=== PATIENT | female | born 1955 | race Two or more races ===

== ENCOUNTER 2017-12-07 15:29 | Outpatient (CLI) | payer OTHER ==
[~2017-12-07 15:29] MED LIST: ALEVE220 M1 PO; CEFADROXIL500 MG PO; PERCOCET 5/3251 TAB PO
== END 2017-12-07 15:31 | disposition home or self-care (01) ==
LOC: MAMO-SONO 15:29
DX: Z12.31 Encounter for screening mammogram for malignant neoplasm of breast (principal); N95.1 Menopausal and female climacteric states

== ENCOUNTER 2018-03-01 12:35 | Outpatient (CLI) | payer OTHER | END 2018-03-01 12:40 | disposition home or self-care (01) | LOC: RAD 501 12:35 | DX: M65.4 Radial styloid tenosynovitis [de Quervain] (principal) ==

== ENCOUNTER 2018-10-25 13:33 | Outpatient (CLI) | payer OTHER | END 2018-10-25 13:34 | disposition home or self-care (01) | LOC: SONOGRAMA 13:33 → MAMO-SONO 13:45 | DX: M25.562 Pain in left knee (principal); M65.88 Other synovitis and tenosynovitis, other site; M22.40 Chondromalacia patellae, unspecified knee | CPT/HCPCS: 73718 ==

== ENCOUNTER 2018-10-27 11:57 | Outpatient (CLI) | payer OTHER | END 2018-10-27 14:39 | disposition home or self-care (01) | LOC: RAD 11:57 | DX: M76.50 Patellar tendinitis, unspecified knee (principal); M23.205 Derangement of unspecified medial meniscus due to old tear or injury, unspecified knee ==

== ENCOUNTER → 2019-03-16 | Outpatient (CLI) | payer OTHER | END | disposition home or self-care (01) | LOC: RAD 16:21 | DX: G57.61 Lesion of plantar nerve, right lower limb (principal) ==

== ENCOUNTER 2020-04-14 12:13 | Outpatient (CLI) | payer OTHER | END 2020-04-14 13:42 | disposition home or self-care (01) | LOC: RAD 12:13 | PROVIDERS: ATTEND Obstetrics & Gynecology | DX: R05 Cough (principal); R07.89 Other chest pain; Z12.31 Encounter for screening mammogram for malignant neoplasm of breast; N60.11 Diffuse cystic mastopathy of right breast ==

== ENCOUNTER → 2020-04-14 15:18 | Outpatient (CLI) | payer OTHER | END | disposition home or self-care (01) | LOC: LAB 08:56 | PROVIDERS: ATTEND Obstetrics & Gynecology | DX: N91.1 Secondary amenorrhea (principal) ==

== ENCOUNTER 2020-04-28 12:40 | Outpatient (CLI) | payer OTHER | END 2020-04-28 12:45 | disposition home or self-care (01) | LOC: NUCLEAR 12:40 | PROVIDERS: ATTEND Obstetrics & Gynecology | DX: M85.80 Other specified disorders of bone density and structure, unspecified site (principal); M81.0 Age-related osteoporosis without current pathological fracture ==

== ENCOUNTER → 2020-08-01 | Outpatient (CLI) | payer OTHER | END | disposition home or self-care (01) | LOC: PPH VACUNA 02:12 | PROVIDERS: ATTEND Emergency Medicine Pediatric Emergency Medicine | DX: Z23 Encounter for immunization (principal) ==

== ENCOUNTER 2021-04-23 08:00 | Outpatient (CLI) | payer OTHER | END 2021-04-23 08:30 | disposition home or self-care (01) | LOC: PPH VACUNA 08:00 | PROVIDERS: ATTEND Emergency Medicine Pediatric Emergency Medicine | DX: Z23 Encounter for immunization (principal) ==

== ENCOUNTER 2021-07-17 11:52 | Outpatient (CLI) | payer OTHER | END 2021-07-17 16:36 | disposition home or self-care (01) | LOC: LAB 11:52 | PROVIDERS: ATTEND Obstetrics & Gynecology | DX: Z20.822 Contact with and (suspected) exposure to COVID-19 (principal) ==

== ENCOUNTER 2021-07-20 09:08 | Outpatient (CLI) | payer OTHER | END 2021-07-20 09:37 | disposition home or self-care (01) | LOC: LAB 09:08 | PROVIDERS: ATTEND Obstetrics & Gynecology | DX: Z20.822 Contact with and (suspected) exposure to COVID-19 (principal) ==

== ENCOUNTER 2021-10-29 08:00 | Outpatient (CLI) | payer OTHER | END 2021-10-29 08:30 | disposition home or self-care (01) | LOC: PPH VACUNA 08:00 | PROVIDERS: ATTEND Emergency Medicine Pediatric Emergency Medicine | DX: Z23 Encounter for immunization (principal) ==

== ENCOUNTER 2021-11-24 08:04 | Outpatient (CLI) | payer OTHER | END 2021-11-24 08:06 | disposition home or self-care (01) | LOC: MAMO-SONO 08:04 | PROVIDERS: ATTEND Obstetrics & Gynecology | DX: N60.11 Diffuse cystic mastopathy of right breast (principal) ==

== ENCOUNTER 2021-12-04 11:19 | Outpatient (CLI) | payer OTHER | END 2021-12-04 11:20 | disposition home or self-care (01) | LOC: NUCLEAR 11:19 | PROVIDERS: ATTEND Obstetrics & Gynecology | DX: M85.80 Other specified disorders of bone density and structure, unspecified site (principal); M81.0 Age-related osteoporosis without current pathological fracture ==

== ENCOUNTER → 2023-01-20 | Outpatient (CLI) | payer OTHER | END | disposition home or self-care (01) | LOC: TOM 08:19 | PROVIDERS: ATTEND Internal Medicine | DX: I11.9 Hypertensive heart disease without heart failure (principal); I71.019 Dissection of thoracic aorta, unspecified; E78.2 Mixed hyperlipidemia; N60.11 Diffuse cystic mastopathy of right breast; Z12.31 Encounter for screening mammogram for malignant neoplasm of breast | CPT/HCPCS: 71275; 76641; 76700; 77067; Q9965 ==

== ENCOUNTER → 2023-10-03 | Outpatient (CLI) | payer OTHER | END | disposition home or self-care (01) | LOC: TOM 14:25 | PROVIDERS: ATTEND Otolaryngology | DX: J32.0 Chronic maxillary sinusitis (principal) ==

== ENCOUNTER 2024-02-23 09:51 | Outpatient (CLI) | payer OTHER | END 2024-02-23 09:58 | disposition home or self-care (01) | LOC: MAMO-SONO 09:51 | PROVIDERS: ATTEND Obstetrics & Gynecology | DX: N60.11 Diffuse cystic mastopathy of right breast (principal); Z12.31 Encounter for screening mammogram for malignant neoplasm of breast ==

== ENCOUNTER 2024-03-02 13:54 | Outpatient (CLI) | payer OTHER | END 2024-03-02 13:57 | disposition home or self-care (01) | LOC: NUCLEAR 13:54 | PROVIDERS: ATTEND Pediatrics | DX: M85.80 Other specified disorders of bone density and structure, unspecified site (principal); M81.0 Age-related osteoporosis without current pathological fracture ==

== ENCOUNTER 2024-03-02 15:05 | Outpatient (CLI) | payer OTHER | END 2024-03-02 15:16 | disposition home or self-care (01) | LOC: RAD 15:05 | PROVIDERS: ATTEND Internal Medicine Rheumatology | DX: M77.11 Lateral epicondylitis, right elbow (principal) ==

== ENCOUNTER 2025-01-10 11:03 | Outpatient (CLI) | payer OTHER | END 2025-01-10 11:04 | disposition home or self-care (01) | LOC: RAD 11:03 | PROVIDERS: ATTEND Ophthalmology | DX: R91.8 Other nonspecific abnormal finding of lung field (principal); R94.31 Abnormal electrocardiogram [ECG] [EKG] ==

== ENCOUNTER 2025-07-15 20:38 | Inpatient (IN) | payer OTHER ==
[~2025-07-15] VITALS: Ht 165.1 cm; Wt 56.7 kg
[2025-07-15] MEDS ORDERED: MORPHINE SULFATE 4 MG/ML CARTRIDGE IV ONE (20:45)
[2025-07-15] MEDS ORDERED: ACETAMINOPHEN 500 MG GEL..CAP PO ONE ×2 (20:45→21:19)
[2025-07-15] MEDS ORDERED: 0.9 % SODIUM CHLORIDE 1,000 ML IV SCH ×2 (20:45→21:15)
[2025-07-15] MEDS ORDERED: FAMOTIDINE/PF 20 MG in 0.9 % SODIUM CHLORIDE 8 ML IV PUSH ONE (20:45)
[2025-07-15] MEDS ORDERED: MORPHINE SULFATE 4 MG/ML CARTRIDGE IV PRN (21:00)
[2025-07-15] MEDS ORDERED: MORPHINE SULFATE 2 MG/ML SYRINGE IV PRN (21:15)
[2025-07-15] MEDS ORDERED: LEVOTHYROXINE25 MCG PO (21:17)
[2025-07-15] MEDS ORDERED: AVAPRO150 MG (21:18)
[2025-07-15] MEDS ORDERED: LEXAPRO20 MG PO (21:19)
[2025-07-15] MEDS ORDERED: ARICEPT10 MG PO (21:19)
[2025-07-15] MEDS ORDERED: FAMOTIDINE/PF 20 MG/2 ML VIAL ONE (21:19)
[2025-07-15] MEDS ORDERED: LIPIDSAVE DR 11 EACH PO (21:19)
--- NOTE | 2025-07-15 21:20 | NUR ---
PACIENTA REFIERE DOLOR FLAKITO Y CONSTANTA A CANDIDA DE FRACTURA DEL RADIO Y ULNA. SE MIDE VITALES . SE REALIZA EKG EVALUADO POR DR. HAYDEN.
[2025-07-15 22:25] LABS: URINE APPEARANCE Clear; URINE BILIRRUBIN Negative (NEGATIVE); URINE BLOOD Negative; URINE COLOR Yellow; URINE GLUCOSE Negative (NEGATIVE); URINE KETONE Negative (NEGATIVE); URINE LEUKOCYTE Small; URINE NITRATE Negative; URINE PROTEIN Negative (NEGATIVE); URINE UROBILINOGEN 0.2 E.U./dl
[2025-07-15 22:29] LABS: URINE BACTERIA 287.1 uL (0.0-1933); URINE EPITHELIAL CELLS 56.1 uL (0.0-38.8); URINE WBC 61.7 uL (0.0-23.2)
[2025-07-15 22:33] LABS: URINE CAST 0.00 uL (0.0-1.40); URINE RBC 0.7 uL (0.0-20.8)
[2025-07-16 00:47] VITALS: BP 144/77; O2SAT 98
[2025-07-16 00:49] LABS: BASO % 0.3 % (0.1-1.2); EOS # 0.10 (0.04-0.54); EOS % 0.9 % (0.7-7.0); LYMPH # 2.22 (1.18-3.74); LYMPH % 20.2 % (19.3-53.1); MEAN PLATELET VOLUME 10.70 fl (9.4-12.4); MONO # 1.21 (0.24-0.82); MONO % 11.0 % (4.7-12.5); NEUT # 7.41 (1.56-6.13); NEUT % 67.3 % (34.0-71.1); RED CELL DISTRIBUTION WIDTH 13.1 % (11.6-14.4)
[2025-07-16 00:52] LABS: INR 1.02
[2025-07-16] MEDS ORDERED: DIPHENHYDRAMINE HCL 50 MG/ML VIAL 1ML IV ONE (05:00)
[2025-07-16 05:15] LABS: ALT/SGPT 26.0 U/L (12-78); AST/SGOT 23.0 U/L (15-37); BILIRUBIN TOTAL 0.45 mg/dL (0.3-1.2); BUN CREA RATIO 13.0 (7.0-25.0); CREATININE SERUM 1.04 mg/dL (0.55-1.02); GFR 52.09; GLOBULINA 2.6 G/DL (2.4-3.5); GLUCOSE FASTING 108.0 mg/dL (65-100); OSMOLALITY SERUM 292.0 MOSM/KG (275-295)
[2025-07-16] MEDS ORDERED: LEVOTHYROXINE SODIUM 25 MCG TABLET PO SCH (06:00)
[2025-07-16 07:29] LABS: INR 1.04
[2025-07-16 07:35] LABS: BUN CREA RATIO 12.0 (7.0-25.0); CREATININE SERUM 0.93 mg/dL (0.55-1.02); GFR 59.26; GLUCOSE FASTING 105.0 mg/dL (65-100); OSMOLALITY SERUM 281.0 MOSM/KG (275-295)
[2025-07-16 07:37] LABS: BASO % 0.6 % (0.1-1.2); EOS # 0.12 (0.04-0.54); EOS % 1.4 % (0.7-7.0); LYMPH # 2.28 (1.18-3.74); LYMPH % 26.8 % (19.3-53.1); MEAN PLATELET VOLUME 10.80 fl (9.4-12.4); MONO # 1.15 (0.24-0.82); MONO % 13.5 % (4.7-12.5); NEUT # 4.90 (1.56-6.13); NEUT % 57.6 % (34.0-71.1); RED CELL DISTRIBUTION WIDTH 13.4 % (11.6-14.4)
[2025-07-16] MEDS ORDERED: MORPHINE SULFATE 4 MG/ML VIAL IV PRN (08:15)
[2025-07-16] MEDS ORDERED: IRBESARTAN 75 MG TABLET PO SCH (09:00)
[2025-07-16] MEDS ORDERED: PANTOPRAZOLE SODIUM 40 MG/VIAL VIAL IV SCH (09:00)
[2025-07-16] MEDS ORDERED: DUI500 PO (12:28)
[2025-07-16] MEDS ORDERED: ALEVE220 M1 PO (12:28)
[2025-07-16] MEDS ORDERED: PERCOCET 5-3251 EACH PO (12:28)
[2025-07-16] MEDS ORDERED: ACETAMINOPHEN 500 MG GEL..CAP PO PRN (12:30)
[2025-07-16 15:14] VITALS: BP 142/80; O2SAT 100
== END 2025-07-16 14:43 | disposition home or self-care (01) | DRG 512 ==
LOC: ER 20:38 → O/R 21:59 → SURH 21:59
PROVIDERS: General Practice; ADMIT Internal Medicine; ATTEND Internal Medicine
PROC: 0PSJ04Z Reposition Left Radius with Internal Fixation Device, Open Approach (ICD-10-PCS; principal; 2025-07-15)
PROC: 0PSL04Z Reposition Left Ulna with Internal Fixation Device, Open Approach (ICD-10-PCS; 2025-07-15)
PROC: 0PUJ07Z Supplement Left Radius with Autologous Tissue Substitute, Open Approach (ICD-10-PCS; 2025-07-15)
PROC: 0PUL07Z Supplement Left Ulna with Autologous Tissue Substitute, Open Approach (ICD-10-PCS; 2025-07-15)
DX: S52.532A Colles' fracture of left radius, initial encounter for closed fracture (principal); S52.692A Other fracture of lower end of left ulna, initial encounter for closed fracture